=== PATIENT | male | born 2000 | race Hispanic/Latino ===

== ENCOUNTER 2021-05-08 11:35 | Inpatient (IN) | payer BC ==
[2021-05-08] MEDS ORDERED: Ketorolac Tromethamine 30 MG/ML VIAL ONE (12:31)
[2021-05-08] MEDS ORDERED: Ventolin HFA Inhaler 60 PUFF INHALER ONE (12:31)
[2021-05-08] MEDS ORDERED: Ondansetron PF 4 MG/2 ML Vial ONE (12:31)
[2021-05-08 12:47] LABS: #Monocytes 0.3 10x3/uL (0.0-1.1); #Neutrophils 8.5 10x3/uL (1.5-8.4); %Basophils 0.2 % (0.0-2.0); %Lymphocytes 13.4 % (18.0-47.0); %Monocytes 3.1 % (0.0-10.0); %Neutrophils 82.1 % (40.0-75.0); Hemoglobin 16.1 g/dL (13.5-17.5); Mean Corpuscular HGB CONC 33.8 g/dL (32.0-36.0); Mean Corpuscular Hemoglobin 29.2 pg (27.0-33.0); Mean Corpuscular Volume 86.4 fl (81.2-95.1); Mean Platelet Volume 10.5 fl (7.4-10.4); Platelet Count 266 10x3/uL (150-450); RBC Distribution Width 12.7 % (11.5-14.5); Red Blood Cell (RBC) Count 5.51 10x6/uL (4.32-5.72); White Blood Cell (WBC) Count 10.3 10x3/uL (3.5-10.5)
[2021-05-08 12:52] LABS: ALT (SGPT) 133 U/L (8-55); AST (SGOT) 58 U/L (5-34); Albumin 4.1 g/dL (3.5-5.0); Alkaline Phosphatase 69 U/L (40-110); Anion Gap 15 mmol/L (10-20); BUN (Urea Nitrogen) 10 mg/dL (8.9-20.6); Bilirubin, Total 0.6 mg/dL (0.2-1.2); CK (CPK) 46 U/L (30-200); Calc. Creatinine Clearance 0 mL/min (70-130); Calcium 9.1 mg/dL (7.8-10.44); Carbon Dioxide 29 mmol/L (22-29); Chloride 101 mmol/L (98-107); Globulin 3.1 g/dL (2.4-3.5); Glucose 99 mg/dL (70-105); Potassium 4.3 mmol/L (3.5-5.1); Protein, Total 7.2 g/dL (6.0-8.3); Sodium 141 mmol/L (136-145)
[2021-05-08] MEDS ORDERED: Senokot S 8.6-50 MG TAB PO PRN (17:43)
[2021-05-08] MEDS ORDERED: Ondansetron ODT 4 MG TAB PO PRN (17:43)
[2021-05-08] MEDS ORDERED: Albuterol Sulfate 2.5 mg/3 ml Neb NEB PRN (18:16)
[2021-05-08] MEDS ORDERED: REMDESIVIR 200 MG in Sodium Chloride 0.9% 250 ML 210 ML IV SCH (18:45)
[2021-05-08 20:11] VITALS: BMI 61.6
[2021-05-08] MEDS: Acetaminophen 325 MG TAB PO PRN (20:19)
[2021-05-09] MEDS: Guaifenesin DM 100-10/5 ML UDCUP PO PRN (01:00)
[2021-05-09 06:15] LABS: #Monocytes 0.5 10x3/uL (0.0-1.1); #Neutrophils 4.1 10x3/uL (1.5-8.4); %Basophils 0.4 % (0.0-2.0); %Eosinophils 0.1 % (0.0-6.0); %Lymphocytes 28.1 % (18.0-47.0); %Monocytes 7.3 % (0.0-10.0); Mean Corpuscular HGB CONC 32.6 g/dL (32.0-36.0); Mean Corpuscular Hemoglobin 28.6 pg (27.0-33.0); Mean Corpuscular Volume 87.7 fl (81.2-95.1); Mean Platelet Volume 10.3 fl (7.4-10.4); Platelet Count 288 10x3/uL (150-450); RBC Distribution Width 12.6 % (11.5-14.5); Red Blood Cell (RBC) Count 4.89 10x6/uL (4.32-5.72); White Blood Cell (WBC) Count 6.7 10x3/uL (3.5-10.5)
[2021-05-09 06:26] LABS: Anion Gap 13 mmol/L (10-20); BUN (Urea Nitrogen) 8 mg/dL (8.9-20.6); Calc. Creatinine Clearance 473 mL/min (70-130); Calcium 8.8 mg/dL (7.8-10.44); Carbon Dioxide 28 mmol/L (22-29); Chloride 104 mmol/L (98-107); Glucose 87 mg/dL (70-105); Potassium 3.5 mmol/L (3.5-5.1); Sodium 141 mmol/L (136-145)
[2021-05-09] MEDS: Enoxaparin Sodium 40 MG/0.4 ML SYRINGE SC SCH (08:27)
[2021-05-09] MEDS: Dexamethasone 20 MG/5 ML VIAL SLOW IVP SCH (08:28)
[2021-05-09] MEDS: Ascorbic Acid 500 mg Chewable Tablet PO SCH (08:28)
[2021-05-09] MEDS: Zinc Sulfate 220 MG CAP PO SCH (08:28)
[2021-05-09] MEDS: Cholecalciferol (Vitamin D3) 400 UNITS TAB PO SCH (08:28)
[2021-05-09] MEDS: REMDESIVIR 100 MG in Sodium Chloride 0.9% 250 ML 230 ML IV SCH (18:11)
[2021-05-09] MEDS: Benzonatate 100 MG CAP PO PRN (19:22)
[2021-05-10] MEDS: Guaifenesin DM 100-10/5 ML UDCUP PO PRN ×3 (00:13→18:21)
[2021-05-10] MEDS: Dexamethasone 20 MG/5 ML VIAL SLOW IVP SCH (08:21)
[2021-05-10] MEDS: Enoxaparin Sodium 40 MG/0.4 ML SYRINGE SC SCH (08:21)
[2021-05-10] MEDS: Ascorbic Acid 500 mg Chewable Tablet PO SCH (08:22)
[2021-05-10] MEDS: Cholecalciferol (Vitamin D3) 400 UNITS TAB PO SCH (08:22)
[2021-05-10] MEDS: Zinc Sulfate 220 MG CAP PO SCH (08:22)
[2021-05-10] MEDS: cefTRIAXone\\ROCEPHIN 2 GM in Sodium Chloride 0.9% 100 ML IVPB SCH (14:02)
[2021-05-10] MEDS: REMDESIVIR 100 MG in Sodium Chloride 0.9% 250 ML 230 ML IV SCH (18:20)
[2021-05-10] MEDS: Doxycycline 100 MG CAP PO SCH (19:51)
[2021-05-10] MEDS: Benzonatate 100 MG CAP PO PRN (19:51)
[2021-05-11] MEDS: Guaifenesin DM 100-10/5 ML UDCUP PO PRN (00:02)
[2021-05-11] MEDS: Benzonatate 100 MG CAP PO PRN (05:00)
[2021-05-11 05:35] LABS: #Neutrophils 7.2 10x3/uL (1.5-8.4); %Basophils 0.4 % (0.0-2.0); %Eosinophils 0.1 % (0.0-6.0); %Lymphocytes 17.3 % (18.0-47.0); %Monocytes 9.3 % (0.0-10.0); %Neutrophils 69.1 % (40.0-75.0); Mean Corpuscular HGB CONC 33.6 g/dL (32.0-36.0); Mean Corpuscular Hemoglobin 28.6 pg (27.0-33.0); Mean Corpuscular Volume 85.3 fl (81.2-95.1); Mean Platelet Volume 9.9 fl (7.4-10.4); Platelet Count 423 10x3/uL (150-450); RBC Distribution Width 12.5 % (11.5-14.5); Red Blood Cell (RBC) Count 5.24 10x6/uL (4.32-5.72); White Blood Cell (WBC) Count 10.4 10x3/uL (3.5-10.5)
[2021-05-11 05:52] LABS: Anion Gap 15 mmol/L (10-20); BUN (Urea Nitrogen) 12 mg/dL (8.9-20.6); CRP (Inflammatory) 3.34 mg/dL (= or < 0.5); Calc. Creatinine Clearance 448 mL/min (70-130); Calcium 9.2 mg/dL (7.8-10.44); Carbon Dioxide 25 mmol/L (22-29); Chloride 107 mmol/L (98-107); Glucose 104 mg/dL (70-105); Potassium 3.9 mmol/L (3.5-5.1); Sodium 143 mmol/L (136-145)
[2021-05-11] MEDS: Cholecalciferol (Vitamin D3) 400 UNITS TAB PO SCH (08:14)
[2021-05-11] MEDS: Ascorbic Acid 500 mg Chewable Tablet PO SCH (08:14)
[2021-05-11] MEDS: Dexamethasone 20 MG/5 ML VIAL SLOW IVP SCH (08:14)
[2021-05-11] MEDS: Zinc Sulfate 220 MG CAP PO SCH (08:14)
[2021-05-11] MEDS: Enoxaparin Sodium 40 MG/0.4 ML SYRINGE SC SCH (08:25)
[2021-05-11] MEDS: Doxycycline 100 MG CAP PO SCH ×2 (08:25→19:56)
[2021-05-11] MEDS: Acetaminophen 325 MG TAB PO PRN (10:15)
[2021-05-11] MEDS: cefTRIAXone\\ROCEPHIN 2 GM in Sodium Chloride 0.9% 100 ML IVPB SCH (12:10)
[2021-05-11] MEDS: REMDESIVIR 100 MG in Sodium Chloride 0.9% 250 ML 230 ML IV SCH (18:15)
[2021-05-12] MEDS: Benzonatate 100 MG CAP PO PRN ×3 (03:45→20:18)
[2021-05-12] MEDS: Guaifenesin DM 100-10/5 ML UDCUP PO PRN (06:01)
[2021-05-12] MEDS: Enoxaparin Sodium 40 MG/0.4 ML SYRINGE SC SCH (07:57)
[2021-05-12] MEDS: Dexamethasone 20 MG/5 ML VIAL SLOW IVP SCH (07:57)
[2021-05-12] MEDS: Acetaminophen 325 MG TAB PO PRN (07:58)
[2021-05-12] MEDS: Ascorbic Acid 500 mg Chewable Tablet PO SCH (07:58)
[2021-05-12] MEDS: Cholecalciferol (Vitamin D3) 400 UNITS TAB PO SCH (07:58)
[2021-05-12] MEDS: Zinc Sulfate 220 MG CAP PO SCH (07:58)
[2021-05-12] MEDS: Doxycycline 100 MG CAP PO SCH ×2 (08:18→20:18)
[2021-05-12] MEDS: cefTRIAXone\\ROCEPHIN 2 GM in Sodium Chloride 0.9% 100 ML IVPB SCH (12:07)
[2021-05-12] MEDS: REMDESIVIR 100 MG in Sodium Chloride 0.9% 250 ML 230 ML IV SCH (17:36)
[2021-05-13] MEDS: Guaifenesin DM 100-10/5 ML UDCUP PO PRN (05:19)
[2021-05-13] MEDS: Enoxaparin Sodium 40 MG/0.4 ML SYRINGE SC SCH (08:24)
[2021-05-13] MEDS: Zinc Sulfate 220 MG CAP PO SCH (08:25)
[2021-05-13] MEDS: Dexamethasone 20 MG/5 ML VIAL SLOW IVP SCH (08:25)
[2021-05-13] MEDS: Cholecalciferol (Vitamin D3) 400 UNITS TAB PO SCH (08:25)
[2021-05-13] MEDS: Ascorbic Acid 500 mg Chewable Tablet PO SCH (08:25)
[2021-05-13] MEDS: Doxycycline 100 MG CAP PO SCH ×2 (08:29→21:12)
[2021-05-13] MEDS: cefTRIAXone\\ROCEPHIN 2 GM in Sodium Chloride 0.9% 100 ML IVPB SCH (12:50)
[2021-05-14] MEDS: Cholecalciferol (Vitamin D3) 400 UNITS TAB PO SCH (09:35)
[2021-05-14] MEDS: Zinc Sulfate 220 MG CAP PO SCH (09:36)
[2021-05-14] MEDS: Doxycycline 100 MG CAP PO SCH (09:36)
[2021-05-14] MEDS: Dexamethasone 20 MG/5 ML VIAL SLOW IVP SCH (09:37)
[2021-05-14] MEDS: Ascorbic Acid 500 mg Chewable Tablet PO SCH (09:37)
[2021-05-14] MEDS: Enoxaparin Sodium 40 MG/0.4 ML SYRINGE SC SCH (09:37)
[2021-05-14] MEDS: cefTRIAXone\\ROCEPHIN 2 GM in Sodium Chloride 0.9% 100 ML IVPB SCH (12:31)
[2021-05-14 17:15] VITALS: BP 114/73; TEMP 98.4
== END 2021-05-14 19:00 | disposition home or self-care (01) | DRG 177 ==
LOC: CSHERS 11:35 → CSHTELE 19:13
PROVIDERS: ADMIT Student in an Organized Health Care Education/Training Program; ATTEND Hospitalist
PROC: XW043E5 Introduction of Remdesivir Anti-infective into Central Vein, Percutaneous Approach, New Technology Group 5 (ICD-10-PCS; principal; 2021-05-08)
PROC: 8E0ZXY6 Isolation (ICD-10-PCS; 2021-05-08)
DX: U07.1 COVID-19 (principal); J12.82 Pneumonia due to coronavirus disease 2019; J96.01 Acute respiratory failure with hypoxia; J45.20 Mild intermittent asthma, uncomplicated
CPT/HCPCS: 36415; 71045; 71275; 80048; 80053; 82550; 84145; 84484; 85025; 85379; 86140; 93005; 94760; 96374; 96375; J0696; J1100; J1650; J1885; J2405; J3490; J7050